=== PATIENT | female | born 1970 | race African-American/Black ===

== ENCOUNTER 2017-10-23 13:23 | Emergency (ER) | payer OTHER ==
[2017-10-23] MEDS ORDERED: Ondansetron ODT 4 MG TAB ONE (13:52)
[2017-10-23] MEDS ORDERED: Diphenoxylate HCl/Atropine Tablet ONE (13:52)
[2017-10-23] MEDS ORDERED: Labetalol HCl 100 MG/20 ML VIAL ONE (14:20)
[2017-10-23 14:25] LABS: #Basophils 0.1 thou/uL (0.0-0.2); #Eosinphils 0.4 thou/uL (0.0-0.7); #Lymphocytes 2.5 thou/uL (1.20-3.40); #Monocytes 0.5 thou/uL (0.11-0.59); #Neutrophils 4.6 thou/uL (1.40-6.50); %Basophils 1.6 % (0.0-1.0); %Eosinophils 4.4 % (0.0-10.0); %Lymphocytes 30.7 % (21.0-51.0); %Monocytes 6.1 % (0.0-10.0); %Neutrophils 57.2 % (42.0-75.0); Hemoglobin 13.1 g/dL (12.0-16.0); Mean Corpuscular HGB CONC 31.6 g/dL (32.0-36.0); Mean Corpuscular Hemoglobin 27.5 pg (27.0-31.0); Mean Corpuscular Volume 87.1 fl (81.0-99.0); Mean Platelet Volume 7.6 fL (7.4-10.4); Platelet Count 262 thou/uL (130-400); RBC Distribution Width 15.7 % (11.5-14.5); Red Blood Cell (RBC) Count 4.77 mill/uL (4.20-5.40)
[2017-10-23 14:27] LABS: Bilirubin Small (Negative); Blood, Urine Trace (Negative); Glucose, Urine (Dipstick) Negative (Negative); Leukocyte Negative (Negative); Nitrite Negative (Negative); Protein, Urine (Dipstick) 100 mg/dL (Neg-Trace); pH, Urine 5.5 (5.0-9.0)
[2017-10-23 14:30] LABS: Pregnancy Test - Urine (BHCG) Negative (Negative); Pregu Control Background? CLEAR/WHITE (CLR/WHITE); Pregu Control Bar Appear? YES (CONTROL BAR); Specific Gravity 1.038 (1.002-1.036); Specific Gravity, Urine 1.038 (1.002-1.036)
[2017-10-23 14:31] LABS: Clarity Hazy (Clear)
[2017-10-23 14:36] LABS: RBC/HPF 0-3 HPF (0-3); WBC/HPF 0-3 HPF (0-3)
[2017-10-23 14:37] LABS: Bacteria/HPF 2+ HPF (None Seen); Crystals/HPF RARE CA OXALATE HPF (Negative)
[2017-10-23 14:56] LABS: ALT (SGPT) 10 U/L (8-55); AST (SGOT) 11 U/L (5-34); Albumin 3.5 g/dL (3.5-5.0); Alkaline Phosphatase 88 U/L (40-150); Anion Gap 14 mmol/L (10-20); BUN (Urea Nitrogen) 14 mg/dL (7.0-18.7); Bilirubin, Total 0.4 mg/dL (0.2-1.2); Calc. Creatinine Clearance 0 mL/min (70-130); Calcium 8.6 mg/dL (7.8-10.44); Carbon Dioxide 19 mmol/L (22-29); Chloride 110 mmol/L (98-107); Estimated GFR-MDRD 50; Globulin 3.1 g/dL (2.4-3.5); Glucose 88 mg/dL (70-105); Potassium 3.8 mmol/L (3.5-5.1); Protein, Total 6.6 g/dL (6.0-8.3); Sodium 139 mmol/L (136-145)
[2017-10-23] MEDS ORDERED: Sodium Chloride 0.9% 1,000 ML BAG ONE (15:14)
== END 2017-10-23 16:45 | disposition home or self-care (01) ==
LOC: MADERS 13:23
DX: I12.9 Hypertensive chronic kidney disease with stage 1 through stage 4 chronic kidney disease, or unspecified chronic kidney disease (principal); N18.9 Chronic kidney disease, unspecified; E86.0 Dehydration; Z79.899 Other long term (current) drug therapy
CPT/HCPCS: 80053; 81001; 81025; 85025; 87086; 96361; 96374; 96376; J7050; Q0162

== ENCOUNTER 2018-01-01 22:23 | Emergency (ER) | payer OTHER ==
[2018-01-02] MEDS ORDERED: Naproxen 500 MG TAB ONE (01:09)
--- NOTE | 2018-01-02 10:11 | RAD ---
THREE VIEWS OF THE RIGHT SHOULDER: INDICATION: History of injury at work. COMPARISON: None. FINDINGS: There is moderate degenerative arthrosis of the right AC joint. No acute fracture or subluxation is evident. Visualized right lung is clear. IMPRESSION: Moderate right acromioclavicular joint osteoarthrosis. No acute osseous abnormality. POS: [facility]
== END 2018-01-02 01:39 | disposition home or self-care (01) ==
LOC: MADERS 22:23
DX: S43.421A Sprain of right rotator cuff capsule, initial encounter (principal); I11.0 Hypertensive heart disease with heart failure; I50.9 Heart failure, unspecified; F17.210 Nicotine dependence, cigarettes, uncomplicated; Z79.899 Other long term (current) drug therapy; X50.0XXA Overexertion from strenuous movement or load, initial encounter; Y99.0 Civilian activity done for income or pay